=== PATIENT | female | born 1985 | race African-American/Black ===

== ENCOUNTER 2016-11-15 11:34 | Emergency (ER) | payer MEDICAID ==
[~2016-11-15] VITALS: Ht 157.5 cm; Wt 45.4 kg
[2016-11-15 11:45] VITALS: BP 112/70
[2016-11-15] MEDS ORDERED: HYDROcodone-ACET 10/325MG TAB PO ONE (13:30)
[2016-11-15] MEDS ORDERED: TETANUS-DIPTH-ACEL PERTUSSIS 0.5ML SYRG IM ONE (13:30)
[2016-11-15] MEDS ORDERED: NEOMYCIN-BACITRACIN-POLYM UNITDOSE PKG TOP OINT TOP ONE (14:30)
== END 2016-11-15 15:56 | disposition home or self-care (01) ==
LOC: EDBD 11:34 → EDUNIT# 11:34 → ER 11:42
DX: S82.202A Unspecified fracture of shaft of left tibia, initial encounter for closed fracture (principal); S61.411A Laceration without foreign body of right hand, initial encounter; S50.811A Abrasion of right forearm, initial encounter; F17.210 Nicotine dependence, cigarettes, uncomplicated; F15.10 Other stimulant abuse, uncomplicated; V49.9XXA Car occupant (driver) (passenger) injured in unspecified traffic accident, initial encounter; Y93.89 Activity, other specified; Y99.8 Other external cause status; Y92.89 Other specified places as the place of occurrence of the external cause; Z23 Encounter for immunization
CPT/HCPCS: 12002; 29505; 73090; 73590; 90471; 90715